=== PATIENT | male | born 1985 | race Asian ===

== ENCOUNTER 2018-02-27 01:31 | Inpatient (IN) | payer MEDICAID ==
[2018-02-27] VITALS (8 sets, daily range): BP systolic 104–159; BP diastolic 68–96
[~2018-02-27] VITALS: Ht 172.7 cm; Wt 71.7 kg
--- NOTE | 2018-02-27 02:05 | Emergency Room Report ---
History of Present Illness General Chief Complaint: Abdominal Pain Source: Patient, Medical Record Present Illness HPI This is a 32-year-old male with a history of cyclic vomiting syndrome. He used to get it frequently but has been well for a few years she stop smoking marijuana. His symptoms started back up again 3 days ago. Since then he has multiple episode vomiting. Vomiting is nonbloody nonbilious. Also with abdominal pain and cramping. No fever chills but no diarrhea. He was at [facility] yesterday. Said that labs show some kidney problem and CT scan was negative. He has previous workup with endoscopy and colonoscopy that were negative. Denies any other complaint. Pain is diffuse in nature. No radiation. 8 out of 10. Sharp and crampy in nature. Allergies: Coded Allergies: No Known Allergies (Verified Allergy, Unknown, 10/31/09) Patient History Past Medical History: see triage record, old chart reviewed Past Surgical History: none Pertinent Family History: none Social History: Denies: smoking Immunizations: other Reviewed Nursing Documentation: PMH: Agreed; PSxH: Agreed Nursing Documentation-[facility] Past Medical History: No Stated History Review of Systems Eye: Denies: eye pain, blurred vision ENT: Denies: ear pain, nose congestion, throat swelling Respiratory: Denies: cough, shortness of breath Cardiovascular: Denies: chest pain, palpitations Gastrointestinal: Reports: abdominal pain, nausea, vomiting Musculoskeletal: Denies: back pain, joint pain Skin: Denies: rash Neurological: Denies: headache, numbness Endocrine: Denies: increased thirst, increased urine Hematologic/Lymphatic: Denies: easy bruising All Other Systems: negative except mentioned in HPI Physical Exam Vital Signs Date Time Temp Pulse Resp B/P (MAP) Pulse Ox O2 Delivery O2 Flow Rate FiO2 02/27/18 01:34 97.9 118 18 141/87 96 vitals with tachycardia Sp02 EP Interpretation: reviewed, normal General Appearance: well appearing, no apparent distress, alert Head: normocephalic, atraumatic Eyes: bilateral eye PERRL, bilateral eye EOMI ENT: hearing grossly normal, normal pharynx Neck: full range of motion, supple, no meningismus Respiratory: chest non-tender, lungs clear, normal breath sounds Cardiovascular #1: regular rate, rhythm, no murmur Gastrointestinal: normal bowel sounds, non tender, no mass, no organomegaly, no bruit, non-distended Musculoskeletal: back normal, gait/station normal, normal range of motion Psychiatric: mood/affect normal Skin: warm/dry Medical Decision Making Diagnostic Impression: Primary Impression: Intractable cyclical vomiting with nausea Additional Impressions: Abdominal pain Qualified Codes: R10.84 - Generalized abdominal pain Dehydration Proteinuria Qualified Codes: R80.9 - Proteinuria, unspecified NIDIA (acute kidney injury) ER Course Patient presents with cyclic vomiting syndrome with intractable vomiting and abdominal pain. He get better with IV fluid and antiemetics. When I tried a by mouth challenge him with just a little bit of fluid, pain came back and he felt nauseous and vomiting again. He does show evidence of dehydration with ketones in his urine and prerenal azotemia. Because of this, will admit versus transfer based on his insurance. Pt will be admitted here. I discussed case with Dr. Crews. Lab Results Impression labs unremarkable Last Vital Signs Date Time Temp Pulse Resp B/P (MAP) Pulse Ox O2 Delivery O2 Flow Rate FiO2 02/27/18 01:34 97.9 118 18 141/87 96 Status: improved Disposition: ADMITTED INPATIENT Condition: Serious Scripts No Active Prescriptions or Reported Meds Referrals: [facility]ERRING (PCP) Giorgio Stock MD Feb 27, 2018 02:05
[2018-02-27 02:09] LABS: BASOPHILS % (AUTO) 0.5 % (0.0-2.0); EOSINOPHILS % (AUTO) 1.2 % (0.0-3.0); HEMATOCRIT 47.3 % (42.0-52.0); HEMOGLOBIN 16.9 G/DL (14.2-18.0); LYMPHOCYTES % (AUTO) 23.4 % (20.0-45.0); MEAN CORPUSCULAR VOLUME 85 FL (80-99); MONOCYTES % (AUTO) 7.5 % (1.0-10.0); NEUTROPHILS % (AUTO) 67.4 % (45.0-75.0); PLATELET COUNT 274 K/UL (150-450); RED BLOOD COUNT 5.56 M/UL (4.70-6.10); RED CELL DISTRIBUTION WIDTH 10.1 % (11.6-14.8); WHITE BLOOD COUNT 12.2 K/UL (4.8-10.8)
[2018-02-27 02:09] LABS: APPEARANCE,URINE SLIGHTLY CLOUDY; BILIRUBIN, URINE 1+ (NEGATIVE); GLUCOSE, URINE (UA) NEGATIVE (NEGATIVE); KETONES,URINE 4+ (NEGATIVE); LEUKOCYTE ESTERASE ,URINE 1+ (NEGATIVE); NITRITE,URINE NEGATIVE (NEGATIVE); PH,URINE 5 (4.5-8.0); PROTEIN,URINE 2+ (NEGATIVE); UROBILINOGEN,URINE 4 MG/DL (0.0-1.0)
[2018-02-27] MEDS ORDERED: Morphine Sulfate 4mg/ml Inj (IV/IM USE ONLY) IVP ONE ×3 (02:15→03:45)
[2018-02-27 02:18] LABS: COLOR,URINE YELLOW
[2018-02-27 02:24] LABS: ANION GAP 12 mmol/L (5-15); BLOOD UREA NITROGEN 31 mg/dL (7-18); CALCIUM 9.7 MG/DL (8.5-10.1); CARBON DIOXIDE 23 MMOL/L (21-32); CHLORIDE 96 MMOL/L (98-107); CREATININE 1.3 MG/DL (0.55-1.30); POTASSIUM 3.8 MMOL/L (3.5-5.1); SODIUM 131 MMOL/L (136-145)
[2018-02-27 02:34] LABS: ALANINE AMINOTRANSFERASE 34 U/L (12-78); ALBUMIN 4.9 G/DL (3.4-5.0); ALBUMIN/GLOBULIN RATIO 1.1 (1.0-2.7); ALKALINE PHOSPHATASE 77 U/L (46-116); ASPARTATE AMINO TRANSFERASE 57 U/L (15-37); BILIRUBIN,TOTAL 1.4 MG/DL (0.2-1.0)
[2018-02-27 02:37] LABS: BILIRUBIN,DIRECT 0.2 MG/DL (0.0-0.3)
[2018-02-27] MEDS ORDERED: Morphine Sulfate 4mg/ml Inj (IV/IM USE ONLY) ONE (02:40)
[2018-02-27] MEDS ORDERED: Promethazine HCl 25 MG in NS 55 ML IVPB ONE (03:30)
[2018-02-27] MEDS ORDERED: Acetaminophen 500mg (ES) tab ORAL PRN (05:15)
[2018-02-27] MEDS: D5NS 1,000 ML IV SCH ×2 (05:32→14:44)
[2018-02-27] MEDS: Morphine Sulfate 2mg/ml Inj IVP PRN ×4 (05:38→21:04)
[2018-02-27] MEDS: Norco 5mg/325mg tab ORAL PRN ×3 (07:57→20:04)
--- NOTE | 2018-02-27 10:53 | History and Physical ---
History of Present Illness General Date patient seen: Feb 27, 2018 Time patient seen: 08:30 Reason for Hospitalization: Abdominal Pain Present Illness HPI 32 yo M, PMH of cyclic vomiting 2/2 THC use. Patient states he used to use marijuana and experienced cyclic vomiting which resolved when he stopped using 4 years ago. He has been well until suddenly three days ago, without any inciting events, patient began vomiting and experiencing abd pain. Patient states the abd pain is sharp and left to midline radiating to the back. He has not been able to eat for four days. He also complains of vomiting that was initially non blood but he has begun to have about 40 cc of dark blood. Patient has not had a bowel movement for many days and cannot comment on hematochezia or melena. Denies diarrhea. Patient also denies fevers and recent travel, admits to chills. Patient admits to dysuria at the end of stream and denies discharge. Patient has not been sexually active for 2 years. Patient presented to [facility] yesterday where a CT AP was done and negative, patient was then discharged and told to return should he have recurring symptoms. Allergies: Coded Allergies: No Known Allergies (Verified Allergy, Unknown, 10/31/09) Medication History No Active Prescriptions or Reported Meds Patient History Healthcare decision maker Resuscitation status Full Code Advanced Directive on File Past Medical/Surgical History Past Medical/Surgical History: (1) Cyclic vomiting syndrome (2) Tetrahydrocannabinol (THC) use disorder, mild, abuse Social History Social History: (1) Tetrahydrocannabinol (THC) use disorder, mild, abuse Review of Systems All Other Systems: negative except mentioned in HPI Physical Exam General Appearance: WD/WN, alert, mild distress Lines, tubes and drains: peripheral HEENT: normocephalic, anicteric, mucous membranes moist, PERRL, other - non icteric Neck: non-tender, normal alignment, supple, normal inspection Respiratory/Chest: chest wall non-tender, lungs clear, normal breath sounds, no respiratory distress, no accessory muscle use, respiratory distress Cardiovascular/Chest: normal peripheral pulses, normal rate, regular rhythm, regularly irregular, no gallop/murmur Abdomen: normal bowel sounds, non tender, soft, no organomegaly, no mass Extremities: normal range of motion, non-tender Skin Exam: normal pigmentation, warm/dry 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, no motor/sensory deficits, oriented x 3 , responsive Last 24 Hour Vital Signs Date Time Temp Pulse Resp B/P (MAP) Pulse Ox O2 Delivery O2 Flow Rate FiO2 02/27/18 08:27 98.7 02/27/18 08:20 Room Air 02/27/18 08:00 98.7 70 17 125/71 (89) 100 02/27/18 06:19 Nasal Cannula 2.0 02/27/18 04:50 98.1 80 20 126/74 100 Room Air 2.0 02/27/18 04:17 98.1 02/27/18 04:04 88 19 141/90 100 2.0 02/27/18 03:51 98.1 79 25 159/95 98 Nasal Cannula 2.0 02/27/18 03:13 97.9 02/27/18 02:34 97.9 02/27/18 02:33 98.9 88 12 134/96 94 Room Air 02/27/18 01:45 97.9 95 18 141/87 96 02/27/18 01:45 95 12 Room Air 02/27/18 01:34 97.9 118 18 141/87 96 Laboratory Tests Test 02/27/18 01:50 02/27/18 01:55 White Blood Count 12.2 K/UL (4.8-10.8) H Red Blood Count 5.56 M/UL (4.70-6.10) Hemoglobin 16.9 G/DL (14.2-18.0) Hematocrit 47.3 % (42.0-52.0) Mean Corpuscular Volume 85 FL (80-99) Mean Corpuscular Hemoglobin 30.4 PG (27.0-31.0) Mean Corpuscular Hemoglobin Concent 35.7 G/DL (32.0-36.0) Red Cell Distribution Width 10.1 % (11.6-14.8) L Platelet Count 274 K/UL (150-450) Mean Platelet Volume 8.2 FL (6.5-10.1) Neutrophils (%) (Auto) 67.4 % (45.0-75.0) Lymphocytes (%) (Auto) 23.4 % (20.0-45.0) Monocytes (%) (Auto) 7.5 % (1.0-10.0) Eosinophils (%) (Auto) 1.2 % (0.0-3.0) Basophils (%) (Auto) 0.5 % (0.0-2.0) Sodium Level 131 MMOL/L (136-145) L Potassium Level 3.8 MMOL/L (3.5-5.1) Chloride Level 96 MMOL/L (98-107) L Carbon Dioxide Level 23 MMOL/L (21-32) Anion Gap 12 mmol/L (5-15) Blood Urea Nitrogen 31 mg/dL (7-18) H Creatinine 1.3 MG/DL (0.55-1.30) Estimat Glomerular Filtration Rate > 60 mL/min (>60) Glucose Level 114 MG/DL (74-106) H Calcium Level 9.7 MG/DL (8.5-10.1) Total Bilirubin 1.4 MG/DL (0.2-1.0) H Direct Bilirubin 0.2 MG/DL (0.0-0.3) Aspartate Amino Transf (AST/SGOT) 57 U/L (15-37) H Alanine Aminotransferase (ALT/SGPT) 34 U/L (12-78) Alkaline Phosphatase 77 U/L (46-116) Total Protein 9.3 G/DL (6.4-8.2) H Albumin 4.9 G/DL (3.4-5.0) Globulin 4.4 g/dL Albumin/Globulin Ratio 1.1 (1.0-2.7) Lipase 123 U/L (73-393) Urine Color Yellow Urine Appearance Slightly cloudy Urine pH 5 (4.5-8.0) Urine Specific [place] 1.025 (1.005-1.035) Urine Protein 2+ (NEGATIVE) H Urine Glucose (UA) Negative (NEGATIVE) Urine Ketones 4+ (NEGATIVE) H Urine Blood 5+ (NEGATIVE) H Urine Nitrite Negative (NEGATIVE) Urine Bilirubin 1+ (NEGATIVE) H Urine Ictotest Positive (NEGATIVE) Urine Urobilinogen 4 MG/DL (0.0-1.0) H Urine Leukocyte Esterase 1+ (NEGATIVE) H Urine RBC 30-40 /HPF (0 - 0) H Urine WBC 2-4 /HPF (0 - 0) Urine Squamous Epithelial Cells None /LPF (NONE/OCC) Urine Amorphous Sediment Moderate /LPF (NONE) H Urine Bacteria Few /HPF (NONE) Height (Feet): 5 Height (Inches): 8.00 Weight (Pounds): 158 Medications Current Medications Medications (Trade) Dose Ordered Sig/Vincenzo Route PRN Reason Start Time Stop Time Status Last Admin Dose Admin Acetaminophen (Tylenol) 500 mg Q6H PRN ORAL Mild Pain/Temp > 100.4 02/27/18 05:15 03/29/18 05:14 Acetaminophen/ Hydrocodone Bitart ([place] 5/325) 1 tab Q4H PRN ORAL Moderate Pain (Pain Scale 4-6) 02/27/18 05:15 03/06/18 05:14 02/27/18 07:57 Dextrose/Sodium Chloride 1,000 ml @ 100 mls/hr Q10H IV 02/27/18 05:15 03/29/18 05:14 02/27/18 05:32 Morphine Sulfate (Morphine Sulfate) 1 mg Q4H PRN IVP Severe Pain (Pain Scale 7-10) 02/27/18 05:15 03/06/18 05:14 02/27/18 05:38 Ondansetron HCl (Zofran) 4 mg Q4H PRN IVP Nausea & Vomiting 02/27/18 05:15 03/29/18 05:14 02/27/18 07:57 Assessment/Plan Problem List: (1) Abdominal pain ICD Codes: R10.9 - Unspecified abdominal pain SNOMED: 26833619, 35327269, 926592911 Qualifiers: Qualified Codes: R10.84 - Generalized abdominal pain (2) NIDIA (acute kidney injury) ICD Codes: N17.9 - Acute kidney failure, unspecified SNOMED: 86043834, 74370323, 667205176 (3) Intractable cyclical vomiting with nausea ICD Codes: G43.A1 - Cyclical vomiting, intractable SNOMED: 36022327, 12682162, 396761157 (4) Tetrahydrocannabinol (THC) use disorder, mild, abuse ICD Codes: F12.10 - Cannabis abuse, uncomplicated SNOMED: 89049623 Assessment/Plan ABD pain and Nausea with history of cyclic vomiting syndrome 2/2 THC use - patient no longer uses THC - GI consult: Dr Crocker - pain control - NPO - IVF 's - urine tox screen - CT at [facility] was negative per patient, obtain records NIDIA 2/2 dehydration - IVF's - avoid nephrotoxic meds DVT proph - heparin Code full I have spent approximately 70 minutes in regards to patient care, counseling, and care coordination with specialists. Beth Prasad DO Feb 27, 2018 10:53
[2018-02-27 10:55] LABS: APPEARANCE,URINE CLEAR; BILIRUBIN, URINE NEGATIVE (NEGATIVE); COLOR,URINE PALE YELLOW; GLUCOSE, URINE (UA) NEGATIVE (NEGATIVE); KETONES,URINE 4+ (NEGATIVE); LEUKOCYTE ESTERASE ,URINE NEGATIVE (NEGATIVE); NITRITE,URINE NEGATIVE (NEGATIVE); PH,URINE 6 (4.5-8.0); PROTEIN,URINE NEGATIVE (NEGATIVE); UROBILINOGEN,URINE NORMAL MG/DL (0.0-1.0)
[2018-02-27] MEDS ORDERED: D5NS 1000ml IV ONE (14:11)
--- NOTE | 2018-02-27 15:17 | GI Initial Consult Note ---
History of Present Illness General Date patient seen: Feb 27, 2018 Time patient seen: 15:09 Reason for Hospitalization: Abdominal Pain Referring physician: EDE WOOD Reason for Consultation: CYCLIC VOMTING SYNDROME Present Illness HPI This is a 32-year-old male with a history of cyclic vomiting syndrome. He used to get it frequently but has been well for a few years she stop smoking marijuana. His symptoms started back up again 3 days ago. Since then he has multiple episode vomiting. Vomiting is nonbloody nonbilious. Also with abdominal pain and cramping. No fever chills but no diarrhea. He was at [facility] yesterday. Said that labs show some kidney problem and CT scan was negative. He has previous workup with endoscopy and colonoscopy that were negative. Denies any other complaint. Pain is diffuse in nature. No radiation. 8 out of 10. Sharp and crampy in nature. GI consulted for cyclic vomiting. Pt seen, awake A&Ox4 NAD with no active s/sx of N/V/D. Pt states he has stopped smoking MJ for approximately 2 years, recently had a MJ brownie last week. Stated he had random episode of emesis, and continued over the weekended. Patient is 10+ year tobacco user as well. Labs reviewed show mild leukocytosis, no anemia. Otherwise, unremarkable. No history of endoscopy / colonoscopy. Home Meds No Active Prescriptions or Reported Meds Med list reviewed/reconciled: Yes Allergies: Coded Allergies: No Known Allergies (Verified Allergy, Unknown, 10/31/09) Patient History History Provided By: Patient PMH Narrative Past Medical History: see triage record, old chart reviewed Past Surgical History: none Pertinent Family History: none Social History: Denies: smoking Immunizations: other Reviewed Nursing Documentation: PMH: Agreed; PSxH: Agreed Nursing Documentation-PM Past Medical History: No Stated History Past Surgical History: none Pertinent Family History: none Social History: Reports: smoking, alcohol use, drug use Review of Systems All Other Systems: negative except mentioned in HPI Physical Exam Vital Signs Date Time Temp Pulse Resp B/P (MAP) Pulse Ox O2 Delivery O2 Flow Rate FiO2 02/27/18 01:34 97.9 118 18 141/87 96 02/27/18 01:45 Room Air 02/27/18 03:51 2.0 Sp02 EP Interpretation: reviewed, normal Labs Laboratory Tests Test 02/27/18 01:50 02/27/18 01:55 02/27/18 10:47 02/27/18 12:40 White Blood Count 12.2 K/UL (4.8-10.8) H Red Blood Count 5.56 M/UL (4.70-6.10) Hemoglobin 16.9 G/DL (14.2-18.0) Hematocrit 47.3 % (42.0-52.0) Mean Corpuscular Volume 85 FL (80-99) Mean Corpuscular Hemoglobin 30.4 PG (27.0-31.0) Mean Corpuscular Hemoglobin Concent 35.7 G/DL (32.0-36.0) Red Cell Distribution Width 10.1 % (11.6-14.8) L Platelet Count 274 K/UL (150-450) Mean Platelet Volume 8.2 FL (6.5-10.1) Neutrophils (%) (Auto) 67.4 % (45.0-75.0) Lymphocytes (%) (Auto) 23.4 % (20.0-45.0) Monocytes (%) (Auto) 7.5 % (1.0-10.0) Eosinophils (%) (Auto) 1.2 % (0.0-3.0) Basophils (%) (Auto) 0.5 % (0.0-2.0) Sodium Level 131 MMOL/L (136-145) L Potassium Level 3.8 MMOL/L (3.5-5.1) Chloride Level 96 MMOL/L (98-107) L Carbon Dioxide Level 23 MMOL/L (21-32) Anion Gap 12 mmol/L (5-15) Blood Urea Nitrogen 31 mg/dL (7-18) H Creatinine 1.3 MG/DL (0.55-1.30) Estimat Glomerular Filtration Rate > 60 mL/min (>60) Glucose Level 114 MG/DL (74-106) H Calcium Level 9.7 MG/DL (8.5-10.1) Total Bilirubin 1.4 MG/DL (0.2-1.0) H Direct Bilirubin 0.2 MG/DL (0.0-0.3) Aspartate Amino Transf (AST/SGOT) 57 U/L (15-37) H Alanine Aminotransferase (ALT/SGPT) 34 U/L (12-78) Alkaline Phosphatase 77 U/L (46-116) Total Protein 9.3 G/DL (6.4-8.2) H Albumin 4.9 G/DL (3.4-5.0) Globulin 4.4 g/dL Albumin/Globulin Ratio 1.1 (1.0-2.7) Lipase 123 U/L (73-393) HIV (1&2) Antibody Rapid Negative (NEGATIVE) Urine Color Yellow Pale yellow Urine Appearance Slightly cloudy Clear Urine pH 5 (4.5-8.0) 6 (4.5-8.0) Urine Specific [place] 1.025 (1.005-1.035) 1.020 (1.005-1.035) Urine Protein 2+ (NEGATIVE) H Negative (NEGATIVE) Urine Glucose (UA) Negative (NEGATIVE) Negative (NEGATIVE) Urine Ketones 4+ (NEGATIVE) H 4+ (NEGATIVE) H Urine Blood 5+ (NEGATIVE) H Negative (NEGATIVE) Urine Nitrite Negative (NEGATIVE) Negative (NEGATIVE) Urine Bilirubin 1+ (NEGATIVE) H Negative (NEGATIVE) Urine Ictotest Positive (NEGATIVE) Urine Urobilinogen 4 MG/DL (0.0-1.0) H Normal MG/DL (0.0-1.0) Urine Leukocyte Esterase 1+ (NEGATIVE) H Negative (NEGATIVE) Urine RBC 30-40 /HPF (0 - 0) H 0-2 /HPF (0 - 0) H Urine WBC 2-4 /HPF (0 - 0) 0-2 /HPF (0 - 0) Urine Squamous Epithelial Cells None /LPF (NONE/OCC) Occasional /LPF Urine Amorphous Sediment Moderate /LPF (NONE) H Urine Bacteria Few /HPF (NONE) Occasional /HPF (NONE) Hepatitis A IgM Antibody Pending Hepatitis B Surface Antigen Pending Hepatitis B Core IgM Antibody Pending Hepatitis C Antibody Pending General Appearance: well appearing, no apparent distress, alert Head: normocephalic EENT: PERRL/EOMI, normal ENT inspection Neck: supple Respiratory: normal breath sounds, no respiratory distress Cardiovascular: normal rate Gastrointestinal: normal inspection, non tender, soft, normal bowel sounds, non -distended Rectal: deferred Genitourinary: deferred Musculoskeletal: normal inspection, back normal Neurologic: normal inspection, alert, oriented x3, responsive Psychiatric: normal inspection, judgement/insight normal, memory normal Skin: normal inspection, normal color, no rash, warm/dry, palpation normal, well hydrated Lymphatic: normal inspection, no adenopathy Current Medications Current Medications Medications (Trade) Dose Ordered Sig/Vincenzo Route PRN Reason Start Time Stop Time Status Last Admin Dose Admin Acetaminophen (Tylenol) 500 mg Q6H PRN ORAL Mild Pain/Temp > 100.4 02/27/18 05:15 03/29/18 05:14 Acetaminophen/ Hydrocodone Bitart ([place] 5/325) 1 tab Q4H PRN ORAL Moderate Pain (Pain Scale 4-6) 02/27/18 05:15 03/06/18 05:14 02/27/18 14:00 Dextrose/Sodium Chloride 1,000 ml @ 100 mls/hr Q10H IV 02/27/18 05:15 03/29/18 05:14 02/27/18 14:44 Morphine Sulfate (Morphine Sulfate) 1 mg Q4H PRN IVP Severe Pain (Pain Scale 7-10) 02/27/18 05:15 03/06/18 05:14 02/27/18 11:37 Ondansetron HCl (Zofran) 4 mg Q4H PRN IVP Nausea & Vomiting 02/27/18 05:15 03/29/18 05:14 02/27/18 11:38 GI: Plan Problems: (1) Intractable cyclical vomiting with nausea (2) Tetrahydrocannabinol (THC) use disorder, mild, abuse (3) Dehydration (4) Cyclic vomiting syndrome (5) Abdominal pain Plan symptomatic treatment at this time CLD, adv as tolerated IV/PO hydration zofran prn, reglan for persistent vomiting extensive discussion with patient on tobacco and drug cessation electrolyte correction fu labs Discussed with Dr. Spaulding. Thank you for this patient referral, we will follow. The patient was seen and examined at bedside and all new and available data was reviewed in the patients chart. I agree with the above findings, impression and plan. (Patient seen earlier today. Signature stamp does not reflect patient encounter time.). - MD Dayami Isidro,[facility] PROCESS MAINTENANCE TECHNICIAN Feb 27, 2018 15:17
[2018-02-27] MEDS ORDERED: Methocarbamol 750mg tab ORAL PRN ×2 (15:30→16:00)
--- NOTE | 2018-02-27 16:18 | Diagnostic Imaging Report ---
Indication:Abdominal pain Technique: Grayscale and duplex Doppler imaging of the abdomen performed. Comparison: None Findings: The liver is unremarkable. The gallbladder sludge demonstrated. CBD is 5 mm in diameter. The demonstrated part of the pancreas, aorta and IVC show no abnormalities. Both kidneys appear unremarkable. The spleen is normal in size. There is no biliary ductal dilatation identified. Doppler evaluation of the main portal vein shows patency. There is no ascites. No hydronephrosis seen. Impression: No acute findings.
[2018-02-28] VITALS: BP 134/83
[2018-02-28] MEDS: Norco 5mg/325mg tab ORAL PRN (00:18)
[2018-02-28] MEDS: Morphine Sulfate 2mg/ml Inj IVP PRN ×2 (01:11→05:07)
[2018-02-28] MEDS: D5NS 1,000 ML IV SCH (01:21)
[2018-02-28 04:00] VITALS: BP 122/79
[2018-02-28 07:14] LABS: BASOPHILS % (AUTO) 0.3 % (0.0-2.0); EOSINOPHILS % (AUTO) 2.5 % (0.0-3.0); HEMATOCRIT 36.7 % (42.0-52.0); HEMOGLOBIN 13.1 G/DL (14.2-18.0); LYMPHOCYTES % (AUTO) 25.9 % (20.0-45.0); MEAN CORPUSCULAR VOLUME 88 FL (80-99); MONOCYTES % (AUTO) 9.1 % (1.0-10.0); NEUTROPHILS % (AUTO) 62.1 % (45.0-75.0); PLATELET COUNT 182 K/UL (150-450); RED BLOOD COUNT 4.17 M/UL (4.70-6.10); RED CELL DISTRIBUTION WIDTH 10.5 % (11.6-14.8); WHITE BLOOD COUNT 6.9 K/UL (4.8-10.8)
[2018-02-28 07:25] LABS: ANION GAP 6 mmol/L (5-15); BLOOD UREA NITROGEN 9 mg/dL (7-18); CALCIUM 8.3 MG/DL (8.5-10.1); CARBON DIOXIDE 27 MMOL/L (21-32); CHLORIDE 106 MMOL/L (98-107); CREATININE 0.8 MG/DL (0.55-1.30); POTASSIUM 3.5 MMOL/L (3.5-5.1); SODIUM 139 MMOL/L (136-145)
[2018-02-28 08:00] VITALS: BP 144/83
[2018-02-28 08:00] LABS: PHOSPHORUS 2.4 MG/DL (2.5-4.9)
[2018-02-28] MEDS ORDERED: Simethicone 80mg tab ORAL SCH (09:01)
[2018-02-28] MEDS ORDERED: SIMETHICONE80 MG ORAL (09:26)
[2018-02-28] MEDS ORDERED: ZOFRAN4 M3 ORAL (09:26)
[2018-02-28] MEDS ORDERED: PROTONIX40 MG ORAL (09:27)
[2018-02-28] MEDS ORDERED: D5NS 1000ml IV ONE (09:59)
--- NOTE | 2018-02-28 11:16 | Discharge Summary ---
Discharge Summary Hospital Course Date of Admission Feb 27, 2018 at 04:23 Date of Discharge Feb 28, 2018 at 10:00 Admitting Diagnosis intractable vomiting. dehydration HPI Horace Tubbs is a 32 year old male who was admitted on Feb 27, 2018 at 04: 23 for Intractable Vomiting,Dehydration Consultations GI: Dr. Crocker [facility] Course 32 yo M PMH of cyclic vomiting syndrome 2/2 THC use presented for abd pain and intractable N/V. Patient states he was not using THC until 2 months ago. His abd pain began three days before presentation. In the interim, he presented at [facility] where a CT AP done was negative. Patient stated he had EGD done in the past that was negative. Patient was admitted for supportive care with IVF's and pain control. Patient was seen by GI who also recommended supportive care. On day of discharge patient was improved and tolerating PO's without N/V. Patient had less abd. pain and related this to gas. Patient was also instructed to abstain from THC use and to keep a diet diary to identify triggers to his symptoms. Discharge medications: zofran simethicone protonix Discharge Condition Upon Discharge: stable Discharge Disposition Patient was discharged to Home (01) Discharge Diagnoses: (1) Abdominal pain (2) GERD (gastroesophageal reflux disease) (3) Bloating Beth Prasad DO Feb 28, 2018 11:16
--- NOTE | 2018-02-28 11:18 | General Progress Note ---
Assessment/Plan Problem List: (1) Abdominal pain ICD Codes: R10.9 - Unspecified abdominal pain SNOMED: 31770139, 61911328, 253006287 Qualifiers: Qualified Codes: R10.84 - Generalized abdominal pain (2) NIDIA (acute kidney injury) ICD Codes: N17.9 - Acute kidney failure, unspecified SNOMED: 11776138, 51541556, 990240799 (3) Intractable cyclical vomiting with nausea ICD Codes: G43.A1 - Cyclical vomiting, intractable SNOMED: 57751937, 22385722, 023741595 (4) Tetrahydrocannabinol (THC) use disorder, mild, abuse ICD Codes: F12.10 - Cannabis abuse, uncomplicated SNOMED: 99212417 Assessment/Plan appreciate GI reqs simethicone protonix patient stable for dc I have spent 70 minutes regarding patient care with more than 35 minutes in patient counseling and coordination of care. Subjective Date patient seen: Feb 28, 2018 Time patient seen: 09:00 Allergies: Coded Allergies: No Known Allergies (Verified Allergy, Unknown, 10/31/09) All Systems: reviewed and negative except above Subjective denies n, v. Admits to abd pain identified as gas. Objective Last 24 Hour Vital Signs Date Time Temp Pulse Resp B/P (MAP) Pulse Ox O2 Delivery O2 Flow Rate FiO2 02/28/18 09:00 Room Air 02/28/18 08:00 97.8 74 20 144/83 (103) 100 02/28/18 04:00 98.5 64 18 122/79 (93) 100 02/28/18 00:00 97.8 83 19 134/83 (100) 100 02/27/18 21:00 Room Air 02/27/18 20:00 98.4 78 18 124/75 (91) 99 02/27/18 17:42 98.1 02/27/18 16:00 98.1 69 18 114/73 (87) 100 02/27/18 14:30 98.2 02/27/18 11:47 98.2 80 18 139/74 (95) 100 Intake and Output 02/27/18 02/28/18 19:00 07:00 Intake Total 1400 ml 1300 ml Balance 1400 ml 1300 ml Intake Oral 300 ml 400 ml IV Total 1100 ml 900 ml # Voids 6 2 Laboratory Tests 11/6/18 12:40: Hepatitis A IgM Antibody [Pending], Hepatitis B Surface Antigen [Pending], Hepatitis B Core IgM Antibody [Pending], Hepatitis C Antibody [Pending] 02/28/18 06:00: Sodium Level 139, Potassium Level 3.5, Chloride Level 106, Carbon Dioxide Level 27, Anion Gap 6, Blood Urea Nitrogen 9, Creatinine 0.8, Estimat Glomerular Filtration Rate > 60, Glucose Level 112H, Calcium Level 8.3L 02/28/18 06:16: White Blood Count 6.9, Red Blood Count 4.17L, Hemoglobin 13.1L, Hematocrit 36.7L , Mean Corpuscular Volume 88, Mean Corpuscular Hemoglobin 31.3H, Mean Corpuscular Hemoglobin Concent 35.6, Red Cell Distribution Width 10.5L, Platelet Count 182, Mean Platelet Volume 7.8, Neutrophils (%) (Auto) 62.1, Lymphocytes (%) (Auto) 25.9, Monocytes (%) (Auto) 9.1, Eosinophils (%) (Auto) 2.5, Basophils (%) (Auto) 0.3, Phosphorus Level 2.4L, Magnesium Level 1.9 Height (Feet): 5 Height (Inches): 8.00 Weight (Pounds): 158 General Appearance: WD/WN, no apparent distress, alert EENT: PERRL/EOMI, normal ENT inspection Neck: non-tender, normal alignment, supple, normal inspection Cardiovascular: normal peripheral pulses, normal rate, regular rhythm, regularly irregular, no gallop/murmur Respiratory/Chest: chest wall non-tender, lungs clear, normal breath sounds, no respiratory distress, respiratory distress Abdomen: normal bowel sounds, non tender, soft, no organomegaly, no mass, abnormal bowel sounds Extremities: normal range of motion, non-tender, normal inspection Edema: no edema noted Arm (L), no edema noted Arm (R), no edema noted Leg (L), no edema noted Leg (R), no edema noted Pedal (L), no edema noted Pedal (R), no edema noted Generalized Neurologic: 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
--- NOTE | 2018-02-28 12:26 | GI Progress Note ---
Assessment/Plan Problems: (1) Bloating ICD Codes: R14.0 - Abdominal distension (gaseous) SNOMED: 399604074 (2) Tetrahydrocannabinol (THC) use disorder, mild, abuse ICD Codes: F12.10 - Cannabis abuse, uncomplicated SNOMED: 05721768 (3) Cyclic vomiting syndrome ICD Codes: G43.A0 - Cyclical vomiting, not intractable SNOMED: 34477186 (4) GERD (gastroesophageal reflux disease) ICD Codes: K21.9 - Gastro-esophageal reflux disease without esophagitis SNOMED: 418163719 (5) Abdominal pain ICD Codes: R10.9 - Unspecified abdominal pain SNOMED: 45158088 Status: stable Status Narrative Seen with Dr. Spaulding. Assessment/Plan okay for DC per GI standpoint symptomatic treatment at this time CLD, adv as tolerated IV/PO hydration zofran prn, reglan for persistent vomiting extensive discussion with patient on tobacco and drug cessation electrolyte correction fu labs The patient was seen and examined at bedside and all new and available data was reviewed in the patients chart. I agree with the above findings, impression and plan. (Patient seen earlier today. Signature stamp does not reflect patient encounter time.). - Dany Spaulding MD Subjective Gastrointestinal/Abdominal: Reports: no symptoms Objective Last 24 Hour Vital Signs Date Time Temp Pulse Resp B/P (MAP) Pulse Ox O2 Delivery O2 Flow Rate FiO2 02/28/18 09:00 Room Air 02/28/18 08:00 97.8 74 20 144/83 (103) 100 02/28/18 04:00 98.5 64 18 122/79 (93) 100 02/28/18 00:00 97.8 83 19 134/83 (100) 100 02/27/18 21:00 Room Air 02/27/18 20:00 98.4 78 18 124/75 (91) 99 02/27/18 17:42 98.1 02/27/18 16:00 98.1 69 18 114/73 (87) 100 02/27/18 14:30 98.2 Intake and Output 02/27/18 02/28/18 19:00 07:00 Intake Total 1400 ml 1300 ml Balance 1400 ml 1300 ml Intake Oral 300 ml 400 ml IV Total 1100 ml 900 ml # Voids 6 2 Laboratory Tests Test 02/27/18 12:40 02/28/18 06:00 02/28/18 06:16 Hepatitis A IgM Antibody Pending Hepatitis B Surface Antigen Pending Hepatitis B Core IgM Antibody Pending Hepatitis C Antibody Pending Sodium Level 139 MMOL/L (136-145) Potassium Level 3.5 MMOL/L (3.5-5.1) Chloride Level 106 MMOL/L (98-107) Carbon Dioxide Level 27 MMOL/L (21-32) Anion Gap 6 mmol/L (5-15) Blood Urea Nitrogen 9 mg/dL (7-18) Creatinine 0.8 MG/DL (0.55-1.30) Estimat Glomerular Filtration Rate > 60 mL/min (>60) Glucose Level 112 MG/DL (74-106) H Calcium Level 8.3 MG/DL (8.5-10.1) L White Blood Count 6.9 K/UL (4.8-10.8) Red Blood Count 4.17 M/UL (4.70-6.10) L Hemoglobin 13.1 G/DL (14.2-18.0) L Hematocrit 36.7 % (42.0-52.0) L Mean Corpuscular Volume 88 FL (80-99) Mean Corpuscular Hemoglobin 31.3 PG (27.0-31.0) H Mean Corpuscular Hemoglobin Concent 35.6 G/DL (32.0-36.0) Red Cell Distribution Width 10.5 % (11.6-14.8) L Platelet Count 182 K/UL (150-450) Mean Platelet Volume 7.8 FL (6.5-10.1) Neutrophils (%) (Auto) 62.1 % (45.0-75.0) Lymphocytes (%) (Auto) 25.9 % (20.0-45.0) Monocytes (%) (Auto) 9.1 % (1.0-10.0) Eosinophils (%) (Auto) 2.5 % (0.0-3.0) Basophils (%) (Auto) 0.3 % (0.0-2.0) Phosphorus Level 2.4 MG/DL (2.5-4.9) L Magnesium Level 1.9 MG/DL (1.8-2.4) Height (Feet): 5 Height (Inches): 8.00 Weight (Pounds): 158 General Appearance: WD/WN, no apparent distress, alert Cardiovascular: normal rate Respiratory/Chest: normal breath sounds, no respiratory distress Abdominal Exam: normal bowel sounds, non tender, soft Extremities: normal range of motion, non-tender Marylin Stock NP Feb 28, 2018 12:26
== END 2018-02-28 10:00 | disposition home or self-care (01) | DRG 54 ==
LOC: EMR 01:45 → 3E 04:23 → EDBEDREQ 04:35
DX: G43.A1 Cyclical vomiting, in migraine, intractable (principal); N17.9 Acute kidney failure, unspecified; R10.9 Unspecified abdominal pain; E86.0 Dehydration; K21.9 Gastro-esophageal reflux disease without esophagitis; R14.0 Abdominal distension (gaseous); F12.10 Cannabis abuse, uncomplicated
CPT/HCPCS: 36415; 76700; 80048; 80053; 81001; 81003; 82248; 83690; 83735; 84100; 85025; 86703; 86705; 86709; 86803; 87086; 87340; 96365; 96366; 99285; J2405

== ENCOUNTER 2018-03-01 07:35 | Emergency (ER) | payer MEDICAID ==
[~2018-03-01] VITALS: Ht 172.7 cm; Wt 72.6 kg
[~2018-03-01 07:35] MED LIST: PROTONIX40 MG ORAL; SIMETHICONE80 MG ORAL; ZOFRAN4 M3 ORAL
[2018-03-01 07:58] VITALS: BP 147/87
[2018-03-01] MEDS ORDERED: Mylanta II UD 30ml ORAL ONE (08:00)
[2018-03-01] MEDS ORDERED: Lidocaine 2% Visc 15ml soln PO ONE (08:00)
--- NOTE | 2018-03-01 08:08 | Emergency Room Report ---
History of Present Illness General Chief Complaint: Nausea, Vomiting, and Diarrhea Source: Patient Present Illness [facility] This patient returns after d/c yesterday after brief admission for GERD. He had a negative CT abd elsewhere three days ago, has had negative EGD/colonoscopy in the past and d/c yesterday with advice to take Protonix, Gas X. There are no new issues. There in no fever, trauma, travel. He has mid epigastric abd burning , nausea. No vomiting. No dysuria, no diarrhea. He denies THC. Looking over EMR pt. has been to this ED many many times over a multi-year period for chronic abd pain. Allergies: Coded Allergies: No Known Allergies (Verified Allergy, Unknown, 10/31/09) Nursing Documentation-[facility] Past Medical History: No Stated History Hx Cardiac Problems: No Hx Cancer: No Hx Gastrointestinal Problems: No Hx Neurological Problems: No Review of Systems Constitutional: Reports: no symptoms, see HPI Eye: Reports: no symptoms ENT: Reports: no symptoms Respiratory: Reports: no symptoms Cardiovascular: Reports: no symptoms Gastrointestinal: Reports: abdominal pain, nausea Genitourinary: Reports: no symptoms Musculoskeletal: Reports: no symptoms Skin: Reports: no symptoms Psychiatric: Reports: no symptoms Neurological: Reports: no symptoms Endocrine: Reports: no symptoms Hematologic/Lymphatic: Reports: no symptoms Allergic: Reports: no symptoms All Other Systems: negative except mentioned in HPI Physical Exam Vital Signs Date Time Temp Pulse Resp B/P (MAP) Pulse Ox O2 Delivery O2 Flow Rate FiO2 03/01/18 07:37 98.2 109 19 145/89 98 Room Air Sp02 EP Interpretation: reviewed, normal General Appearance: normal inspection, well appearing, no apparent distress, alert, GCS 15, non-toxic Head: normocephalic, atraumatic Eyes: bilateral eye normal inspection, bilateral eye PERRL, bilateral eye EOMI ENT: normal ENT inspection, hearing grossly normal, normal pharynx, no angioedema, normal voice, moist mucus membranes Neck: normal inspection, full range of motion, supple, no meningismus, no bony tend Respiratory: normal inspection, lungs clear, normal breath sounds, no rhonchi, no respiratory distress, no retraction, no accessory muscle use, no wheezing Cardiovascular #1: normal inspection, regular rate, rhythm, no edema Gastrointestinal: normal inspection, normal bowel sounds, non tender, soft, no mass, non-distended Musculoskeletal: gait/station normal, normal range of motion Neurologic: normal inspection, alert, oriented x3, responsive, motor strength/ tone normal Psychiatric: normal inspection, judgement/insight normal, memory normal Suicide Risk Assessment: Suicidal Ideation: No Had intent to initiate attempt: No Pt's plan for suicide attempt: No Has means to complete attempt: No Skin: normal inspection, normal color, no rash, warm/dry Medical Decision Making Diagnostic Impression: Primary Impression: Chronic abdominal pain ER Course I have tried my best to explain to patient once again that there is no additional therapy that is possible, to take Protonix as prescribed. Can add Maalox or Mylanta or Tums prn. There is no indication to repeat any testing. Last Vital Signs Date Time Temp Pulse Resp B/P (MAP) Pulse Ox O2 Delivery O2 Flow Rate FiO2 03/01/18 07:58 98.2 85 19 147/87 96 Room Air Status: improved Disposition: HOME, SELF-CARE Condition: Stable Referrals: NON PHYSICIAN (PCP) Patient Instructions: Abdominal Pain, Adult, [id number] Additional Instructions: Take prescription as prescribed. Can add Maalox or Mylanta or Tums as needed. Caleb Puente M.D. Mar 01, 2018 08:08
[2018-03-01 08:27] VITALS: BP 147/87
== END 2018-03-01 08:27 | disposition home or self-care (01) ==
LOC: EMR 07:52
DX: R10.13 Epigastric pain (principal); R11.2 Nausea with vomiting, unspecified; R19.7 Diarrhea, unspecified
CPT/HCPCS: 96374; 99284; S0028